=== PATIENT | female | born 1990 | race Caucasian/White ===

== ENCOUNTER 2017-11-19 10:39 | Inpatient (IN) | payer OTHER ==
[~2017-11-19] VITALS: Ht 172.7 cm; Wt 200.0 kg
[~2017-11-19 10:39] MED LIST: ADVAIR 2501 DISK W/1 IH; CELEBREX100 MG PO; FLOVENT 110MCG7.9 GM IH; GILTUSS TR TAB1 EACH PO; PROVENTIL3 ML/2.5 M IH; SINGULAIR 10MG10 MG PO; SKELAXIN800 MG PO; ZITHROMAX500 MG PO
[2017-12-25] MEDS ORDERED: PRENATAL 19 TA1 EAC1 PO (16:30)
== END 2017-12-28 11:51 | disposition home or self-care (01) | DRG 775 ==
LOC: OB/GYN 11-26 10:45 → LDR 12-25 14:41 → OB/GYN 12-26 10:45
PROC: 10E0XZZ Delivery of Products of Conception, External Approach (ICD-10-PCS; principal; 2017-12-26)
PROC: 0UQGXZZ Repair Vagina, External Approach (ICD-10-PCS; 2017-12-26)
PROC: 3E0P7VZ Introduction of Hormone into Female Reproductive, Via Natural or Artificial Opening (ICD-10-PCS; 2017-12-26)
PROC: 3E033VJ Introduction of Other Hormone into Peripheral Vein, Percutaneous Approach (ICD-10-PCS; 2017-12-26)
PROC: 4A033R1 Measurement of Arterial Saturation, Peripheral, Percutaneous Approach (ICD-10-PCS; 2017-12-26)
PROC: 4A1HXCZ Monitoring of Products of Conception, Cardiac Rate, External Approach (ICD-10-PCS; 2017-12-26)
DX: O71.4 Obstetric high vaginal laceration alone (principal); Z3A.39 39 weeks gestation of pregnancy; Z37.0 Single live birth

== ENCOUNTER 2017-12-21 09:48 | Outpatient (CLI) | payer OTHER | END 2017-12-21 10:33 | disposition home or self-care, planned readmission (81) | LOC: NST 09:48 | DX: Z34.83 Encounter for supervision of other normal pregnancy, third trimester (principal) ==

== ENCOUNTER 2017-12-24 11:25 | Outpatient (CLI) | payer OTHER ==
[2017-12-25] MEDS ORDERED: PRENATAL 19 TA1 EAC1 PO (16:30)
== END 2017-12-24 12:34 | disposition home or self-care, planned readmission (81) ==
LOC: NST 11:25
DX: Z34.83 Encounter for supervision of other normal pregnancy, third trimester (principal)